=== PATIENT | male | born 2000 | race Caucasian/White ===

== ENCOUNTER 2019-04-17 09:11 | Emergency (ER) | payer BC ==
[~2019-04-17] VITALS: Ht 180.3 cm; Wt 73.2 kg
[~2019-04-17 09:11] MED LIST: ACET500C5 PO; ALBU8.5H8 INH; IBUP-1542 PO
[2019-04-17 09:26] VITALS: BP 111/66; PULSE 80; RESP 20; Ht 180.3 cm; Wt 73.2 kg
== END 2019-04-17 10:43 | disposition home or self-care (01) ==
LOC: FTE 09:11
DX: D36.7 Benign neoplasm of other specified sites (principal); J45.909 Unspecified asthma, uncomplicated
CPT/HCPCS: 99282